=== PATIENT | female | born 1975 | race Two or more races ===

== ENCOUNTER 2022-01-09 23:14 | Emergency (ER) | payer OTHER ==
[~2022-01-09] VITALS: Ht 160 cm; Wt 90.7 kg
[2022-01-09] MEDS ORDERED: LIDOCAINE 1% INJ 50 ML MDV IJ ONE (23:54)
--- NOTE | 2022-01-09 23:57 | NUR ---
DR. LAW DELACRUZ AT PT'S BEDSIDE FOR WOUND TX
[2022-01-10] MEDS ORDERED: NOREPINEPHRINE 8 MG in IV NS 0.9% 242 ML IV PRN ×2
[2022-01-10] MEDS ORDERED: CLIN300C12 PO (00:40)
[2022-01-10 00:57] VITALS: BP 139/90
--- NOTE | 2022-01-10 00:57 | NUR ---
Patient discharged to home in stable condition. Written and verbal after care instructions given. Patient verbalizes understanding of instruction.
== END 2022-01-10 00:59 | disposition home or self-care (01) ==
LOC: ER 23:14
DX: L60.0 Ingrowing nail (principal); Z86.79 Personal history of other diseases of the circulatory system; Z60.2 Problems related to living alone; Z79.899 Other long term (current) drug therapy
CPT/HCPCS: 11730; 11732; 99284; J3490